=== PATIENT | female | born 1935 | race Caucasian/White ===

== ENCOUNTER 2020-01-31 14:47 | Inpatient (IN) ==
[2020-01-31] MEDS ORDERED: Acetaminophen 325 MG TABLET PO PRN (15:08)
[2020-01-31] MEDS ORDERED: Atropine 1% Opth Drops 100 DROP/5 ML BOTTLE SL PRN (15:08)
[2020-01-31] MEDS ORDERED: Albuterol 2.5 MG/3 ML NEBULIZER IH PRN (15:08)
[2020-01-31] MEDS ORDERED: Ondansetron ODT 4 MG TAB.RAPDIS SL PRN (15:08)
[2020-01-31] MEDS ORDERED: Bisacodyl 10 MG RECTAL SUPPOSITORY RC PRN (15:08)
[2020-01-31] MEDS ORDERED: polyethylene glycoL 3350 17 GM POWD.PACK PO PRN (15:08)
[2020-01-31] MEDS ORDERED: haloperidoL 1 MG TABLET PO PRN (15:08)
[2020-01-31] MEDS ORDERED: Morphine Sulfate Oral CONC 10 MG/0.5 ML ORAL.SYG PO PRN (15:08)
[2020-01-31] MEDS ORDERED: *HR* OxyCODONE Immed Rel 5 MG TABLET PO PRN (15:08)
[2020-01-31] MEDS ORDERED: *HR* LORazepam Oral Conc 2 MG/ML PO PRN (15:08)
[2020-01-31] MEDS: Nystatin POWDER 30 GM BOTTLE TP SCH (20:20)
[2020-02-01] MEDS: Nystatin POWDER 30 GM BOTTLE TP SCH ×3 (08:06→21:19)
[2020-02-01] MEDS ORDERED: polyethylene glycoL 3350 17 GM POWD.PACK PO PRN (14:04)
[2020-02-01] MEDS ORDERED: Sulfamethoxazole/Trimeth DS 1 EACH TABLET PO SCH (14:15)
[2020-02-01] MEDS: predniSONE 10 MG TABLET PO SCH (15:24)
[2020-02-01] MEDS: Furosemide 40 MG TABLET PO SCH (15:24)
[2020-02-01] MEDS: Aspirin Enteric Coated 81 MG Tablet PO SCH (15:24)
[2020-02-01] MEDS: DilTIAZem CD (24hr) 300 MG CAP.ER.24H PO SCH (15:24)
[2020-02-01] MEDS: Budesonide/Formoterol 80/4.5 1 PUFF INH IH SCH ×2 (15:39→23:25)
[2020-02-01] MEDS ORDERED: Ipratropium/Albuterol Neb 3 ML IH SCH (17:00)
[2020-02-01] MEDS: Doxycycline 100 MG in 0.9 % Sodium Chloride Mini Bag 100 ML IVPB SCH (17:09)
[2020-02-01] MEDS: rOPINIRole 0.25 MG TABLET PO SCH (22:00)
[2020-02-02] MEDS: Doxycycline 100 MG in 0.9 % Sodium Chloride Mini Bag 100 ML IVPB SCH ×2 (05:52→16:39)
[2020-02-02] MEDS: predniSONE 10 MG TABLET PO SCH (09:02)
[2020-02-02] MEDS: Furosemide 40 MG TABLET PO SCH ×2 (09:03→16:38)
[2020-02-02] MEDS: Aspirin Enteric Coated 81 MG Tablet PO SCH (09:03)
[2020-02-02] MEDS: DilTIAZem CD (24hr) 300 MG CAP.ER.24H PO SCH (09:04)
[2020-02-02] MEDS: Nystatin POWDER 30 GM BOTTLE TP SCH ×3 (09:05→21:29)
[2020-02-02] MEDS: Tiotropium 10 INH DOSE IH SCH (09:13)
[2020-02-02] MEDS: Budesonide/Formoterol 80/4.5 1 PUFF INH IH SCH ×2 (09:13→22:32)
[2020-02-02] MEDS: rOPINIRole 0.25 MG TABLET PO SCH (21:27)
[2020-02-03] MEDS: Doxycycline 100 MG in 0.9 % Sodium Chloride Mini Bag 100 ML IVPB SCH ×2 (05:49→17:58)
[2020-02-03] MEDS: DilTIAZem CD (24hr) 300 MG CAP.ER.24H PO SCH (08:31)
[2020-02-03] MEDS: Tiotropium 10 INH DOSE IH SCH (08:44)
[2020-02-03] MEDS: Budesonide/Formoterol 80/4.5 1 PUFF INH IH SCH ×2 (08:44→22:36)
[2020-02-03] MEDS: predniSONE 10 MG TABLET PO SCH (08:49)
[2020-02-03] MEDS: Aspirin Enteric Coated 81 MG Tablet PO SCH (08:50)
[2020-02-03] MEDS: Furosemide 40 MG TABLET PO SCH ×2 (08:50→17:58)
[2020-02-03] MEDS: Nystatin POWDER 30 GM BOTTLE TP SCH ×3 (08:52→18:00)
[2020-02-03] MEDS: rOPINIRole 0.25 MG TABLET PO SCH (21:10)
[2020-02-04] MEDS: Doxycycline 100 MG in 0.9 % Sodium Chloride Mini Bag 100 ML IVPB SCH ×2 (05:41→18:02)
[2020-02-04] MEDS: Aspirin Enteric Coated 81 MG Tablet PO SCH (09:09)
[2020-02-04] MEDS: Furosemide 40 MG TABLET PO SCH ×2 (09:09→18:01)
[2020-02-04] MEDS: predniSONE 10 MG TABLET PO SCH (09:10)
[2020-02-04] MEDS: DilTIAZem CD (24hr) 300 MG CAP.ER.24H PO SCH (09:10)
[2020-02-04] MEDS: Nystatin POWDER 30 GM BOTTLE TP SCH ×3 (09:11→20:42)
[2020-02-04] MEDS: Tiotropium 10 INH DOSE IH SCH (11:42)
[2020-02-04] MEDS: Budesonide/Formoterol 80/4.5 1 PUFF INH IH SCH ×2 (11:43→22:41)
[2020-02-04] MEDS: rOPINIRole 0.25 MG TABLET PO SCH (20:41)
[2020-02-05] MEDS: Doxycycline 100 MG in 0.9 % Sodium Chloride Mini Bag 100 ML IVPB SCH (05:55)
[2020-02-05] MEDS: DilTIAZem CD (24hr) 300 MG CAP.ER.24H PO SCH (08:36)
[2020-02-05] MEDS: Aspirin Enteric Coated 81 MG Tablet PO SCH (08:36)
[2020-02-05] MEDS: predniSONE 10 MG TABLET PO SCH (08:36)
[2020-02-05] MEDS: Furosemide 40 MG TABLET PO SCH ×2 (08:37→17:04)
[2020-02-05] MEDS: Nystatin POWDER 30 GM BOTTLE TP SCH ×3 (08:37→21:03)
[2020-02-05] MEDS: Tiotropium 10 INH DOSE IH SCH (12:07)
[2020-02-05] MEDS: Budesonide/Formoterol 80/4.5 1 PUFF INH IH SCH ×2 (12:09→21:27)
[2020-02-05] MEDS: rOPINIRole 0.25 MG TABLET PO SCH (21:01)
[2020-02-05] MEDS: Doxycycline 100 MG CAPSULE PO SCH (21:02)
[2020-02-06 07:38] VITALS: BP 117/73
[2020-02-06] MEDS: DilTIAZem CD (24hr) 300 MG CAP.ER.24H PO SCH (07:41)
[2020-02-06] MEDS: Furosemide 40 MG TABLET PO SCH (07:41)
[2020-02-06] MEDS: Aspirin Enteric Coated 81 MG Tablet PO SCH (07:41)
[2020-02-06] MEDS: Doxycycline 100 MG CAPSULE PO SCH (07:42)
[2020-02-06] MEDS: Nystatin POWDER 30 GM BOTTLE TP SCH ×2 (07:43→14:48)
[2020-02-06] MEDS: predniSONE 10 MG TABLET PO SCH (07:43)
[2020-02-06] MEDS: Tiotropium 10 INH DOSE IH SCH (10:48)
[2020-02-06] MEDS: Budesonide/Formoterol 80/4.5 1 PUFF INH IH SCH (10:49)
== END 2020-02-06 15:30 | disposition hospice, home (50) | DRG 603 ==
LOC: INPPIK 18:01
PROVIDERS: ADMIT Family Medicine; ATTEND Family Medicine